=== PATIENT | female | born 1940 | race Caucasian/White ===

== ENCOUNTER 2018-04-24 00:10 | Inpatient (IN) | payer OTHER ==
[~2018-04-24] VITALS: Ht 157.5 cm; Wt 53.3 kg
[2018-04-24] MEDS ORDERED: ALBUTEROL/IPRATROPIUM 2.5MG/0.5MG, 3 ML NPPB ONE (00:30)
[2018-04-24] MEDS ORDERED: ACETAMINOPHEN 325 MG TABLET PO ONE (00:30)
[2018-04-24] MEDS ORDERED: SODIUM CHLORIDE 0.9% 1,000ML IVBOLUS ONE (00:30)
[2018-04-24] MEDS ORDERED: SODIUM CHLORIDE FLUSH 10ML SYR IVF ONE (00:30)
[2018-04-24] MEDS ORDERED: CIPR100T3 PO (00:44)
[2018-04-24] MEDS ORDERED: BUDE10.22 INH (00:44)
[2018-04-24] MEDS ORDERED: TIOT18CA INH (00:44)
[2018-04-24] MEDS ORDERED: LEVO25TA4 PO (00:44)
[2018-04-24] MEDS ORDERED: LORA-445 PO (00:44)
[2018-04-24 01:03] LABS: BASOPHILS # (AUTO) 0.02 x10^3/uL (0-0.1); BASOPHILS % (AUTO) 0 % (0-1); EOSINOPHILS # (AUTO) 0.01 x10^3/uL (0-0.4); EOSINOPHILS % (AUTO) 0 % (1-7); LYMPHOCYTES # (AUTO) 0.88 x10^3/uL (1-3.4); LYMPHOCYTES % (AUTO) 9 % (22-44); MD NO; MEAN CORPUSCULAR HGB CONC 33.9 g/dL (32.4-35.8); MEAN CORPUSCULAR VOLUME 97.2 fL (80-100); MONOCYTES # (AUTO) 0.85 x10^3/uL (0.2-0.8); MONOCYTES % (AUTO) 9 % (2-9); NEUTROPHILS # (AUTO) 7.81 x10^3/uL (1.8-6.8); NEUTROPHILS % (AUTO) 82 % (42-75); PLATELET COUNT 397 x10^3/uL (130-400); RED BLOOD COUNT 4.05 x10^6/uL (3.82-5.3); RED CELL DISTRIBUTION WIDTH 14.6 % (9.6-15.2)
[2018-04-24] MEDS ORDERED: ACETAMINOPHEN 325 MG TABLET ONE (01:03)
[2018-04-24 01:09] LABS: ALANINE AMINOTRANSFERASE 41 U/L (12-78); ALBUMIN 2.6 g/dL (3.4-5.0); ANION GAP 9 mmol/L (5-15); CALCIUM 7.7 mg/dL (8.5-10.1); CHLORIDE 103 mmol/L (98-107); CREATININE 0.54 mg/dL (0.55-1.02)
[2018-04-24 01:14] LABS: ALKALINE PHOSPHATASE 66 U/L (45-117); BILIRUBIN,TOTAL 0.4 mg/dL (0.2-1.0); TOTAL PROTEIN 6.6 g/dL (6.4-8.2); TROPONIN I < 0.015 ng/mL (0.000-0.045)
[2018-04-24] MEDS ORDERED: methylPREDNISolone SOD SUCC 125 MG/2 ML IVP ONE (01:30)
[2018-04-24] MEDS ORDERED: methylPREDNISolone SOD SUCC 125 MG/2 ML ONE (01:36)
[2018-04-24 01:40] LABS: CULTURE INDICATED? NO; MICROSCOPIC NOT IND
[2018-04-24 03:15] VITALS: BP 94/55
[2018-04-24] MEDS ORDERED: BISACODYL 10 MG SUPP PR PRN (05:00)
[2018-04-24] MEDS ORDERED: POLYETHYLENE GLYCOL 17 GM PACKET PO PRN (05:00)
[2018-04-24] MEDS ORDERED: ACETAMINOPHEN 325 MG TABLET PO PRN (05:00)
[2018-04-24] MEDS ORDERED: LABETALOL 5MG/ML, 20ML IVPush PRN (05:00)
[2018-04-24] MEDS ORDERED: hydrALAzine 20 MG/ML, 1ML IVPush PRN (05:00)
[2018-04-24] MEDS ORDERED: ONDANSETRON ODT 4 MG PO PRN (05:00)
[2018-04-24] MEDS ORDERED: ALBUTEROL SULFATE 2.5 MG/3 ML HHN SCH (05:00)
[2018-04-24] MEDS ORDERED: ONDANSETRON 2MG/ML, 2ML IVPush PRN (05:00)
[2018-04-24] MEDS ORDERED: PROMETHAZINE 25 MG/ML, 1ML IM PRN (05:00)
[2018-04-24] MEDS ORDERED: DOCUSATE 100 MG CAPSULE PO PRN (05:00)
[2018-04-24] MEDS: SODIUM CHLORIDE 0.9% 1,000 ML IV SCH ×2 (05:26→13:22)
[2018-04-24 05:41] LABS: FREE T4 (FREE THYROXINE) 1.09 ng/dL (0.76-1.46); THYROID STIMULATING HORMONE 3.55 mIU/L (0.358-3.740)
[2018-04-24 05:43] LABS: HEMOGLOBIN A1C 5.9 % (4.2-6.3)
[2018-04-24] MEDS: methylPREDNISolone SOD SUCC 125 MG/2 ML IVPush SCH ×3 (05:45→17:52)
[2018-04-24] MEDS: DOXYCYCLINE 100 MG in DEXTROSE 5% 250 ML IV SCH ×2 (05:45→17:52)
[2018-04-24] MEDS: LEVOTHYROXINE 25 MCG TABLET PO SCH (05:46)
[2018-04-24] MEDS: HEPARIN 5,000 UNITS/ML, 1ML SQ SCH ×3 (05:46→21:09)
[2018-04-24] MEDS ORDERED: IPRATROPIUM 0.5 MG/2.5 ML INHA NPPB SCH (07:00)
[2018-04-24] MEDS ORDERED: MAGNESIUM SULFATE PMX 2GM/50ML 50 ML IV ONE (07:00)
[2018-04-24 07:28] VITALS: BP 95/58
[2018-04-24] MEDS: ALBUTEROL/IPRATROPIUM 2.5MG/0.5MG, 3 ML NPPB SCH ×4 (07:50→19:51)
[2018-04-24] MEDS: MAGNESIUM CHLORIDE 64 MG TABLET.DR PO SCH ×2 (10:16→19:38)
[2018-04-24] MEDS: BUDESONIDE 0.5 MG/2 ML INHA HHN SCH ×2 (11:00→17:00)
[2018-04-24 13:25] VITALS: BP 125/70
[2018-04-24 18:25] VITALS: BP 173/81
[2018-04-24] MEDS ORDERED: LORazepam 1MG TABLET ONE (19:34)
[2018-04-24 19:48] VITALS: BP 165/73
[2018-04-24] MEDS ORDERED: LORazepam 1MG TABLET PO ONE (20:00)
[2018-04-25] MEDS: methylPREDNISolone SOD SUCC 125 MG/2 ML IVPush SCH ×4 (00:04→18:55)
[2018-04-25 02:21] VITALS: BP 151/77
[2018-04-25] MEDS: HEPARIN 5,000 UNITS/ML, 1ML SQ SCH ×3 (04:57→19:33)
[2018-04-25] MEDS: DOXYCYCLINE 100 MG in DEXTROSE 5% 250 ML IV SCH ×2 (06:00→18:55)
[2018-04-25] MEDS: LEVOTHYROXINE 25 MCG TABLET PO SCH (06:00)
[2018-04-25 07:01] VITALS: BP 137/69
[2018-04-25] MEDS: ALBUTEROL/IPRATROPIUM 2.5MG/0.5MG, 3 ML NPPB SCH ×4 (07:25→19:43)
[2018-04-25] MEDS: BUDESONIDE 0.5 MG/2 ML INHA HHN SCH ×2 (07:25→19:00)
[2018-04-25] MEDS ORDERED: BUDESONIDE 0.5 MG/2 ML INHA HHN SCH (07:30)
[2018-04-25] MEDS: MAGNESIUM CHLORIDE 64 MG TABLET.DR PO SCH ×2 (08:05→19:33)
[2018-04-25 08:27] LABS: MEAN CORPUSCULAR HEMOGLOBIN 31.9 pg (27.0-34.8); MEAN CORPUSCULAR HGB CONC 32.4 g/dL (32.4-35.8); MEAN CORPUSCULAR VOLUME 98.5 fL (80-100); MEAN PLATELET VOLUME 7.5 fL (7.4-10.4); PLATELET COUNT 411 x10^3/uL (130-400); RED BLOOD COUNT 3.88 x10^6/uL (3.82-5.3); RED CELL DISTRIBUTION WIDTH 14.7 % (9.6-15.2)
[2018-04-25 08:35] LABS: ALBUMIN 2.5 g/dL (3.4-5.0); ANION GAP 10 mmol/L (5-15); CALCIUM 8.2 mg/dL (8.5-10.1); CHLORIDE 107 mmol/L (98-107)
[2018-04-25 08:55] LABS: BASOPHILS # (AUTO) 0.02 x10^3/uL (0-0.1); BASOPHILS % (AUTO) 0 % (0-1); EOSINOPHILS % (AUTO) 0 % (1-7); LYMPHOCYTES # (AUTO) 1.02 x10^3/uL (1-3.4); LYMPHOCYTES % (AUTO) 5 % (22-44); MD SCAN; MONOCYTES % (AUTO) 3 % (2-9); NEUTROPHILS # (AUTO) 18.26 x10^3/uL (1.8-6.8); NEUTROPHILS % (AUTO) 92 % (42-75)
[2018-04-25 09:30] LABS: ALANINE AMINOTRANSFERASE 41 U/L (12-78); ALKALINE PHOSPHATASE 60 U/L (45-117); BILIRUBIN,TOTAL 0.1 mg/dL (0.2-1.0); HDL CHOLESTEROL (DIRECT) 55 mg/dL (40-60); TOTAL PROTEIN 6.5 g/dL (6.4-8.2)
[2018-04-25 11:13] LABS: CREATININE 0.73 mg/dL (0.55-1.02); TRIGLYCERIDES 67 mg/dL (50-200); VLDL CHOLESTEROL 13 mg/dL (0-25)
[2018-04-25 11:14] LABS: CHOL/HDL RATIO 2.8; CHOLESTEROL, TOTAL 153 mg/dL (140-239); HDL CHOL % 36 % (28-40); LDL CHOLESTEROL,CALCULATED 85 mg/dL (54-169); LDL/HDL RATIO 1.5 (0.5-3.0)
[2018-04-25 13:45] VITALS: BP 138/64
[2018-04-25 19:51] VITALS: BP 133/76
[2018-04-25] MEDS ORDERED: LORazepam 1MG TABLET PO ONE (21:00)
[2018-04-26] MEDS: methylPREDNISolone SOD SUCC 125 MG/2 ML IVPush SCH ×4 (01:25→16:02)
[2018-04-26 01:35] VITALS: BP 144/76
[2018-04-26] MEDS: HEPARIN 5,000 UNITS/ML, 1ML SQ SCH ×2 (05:00→12:05)
[2018-04-26] MEDS: DOXYCYCLINE 100 MG in DEXTROSE 5% 250 ML IV SCH ×2 (06:00→09:30)
[2018-04-26] MEDS: LEVOTHYROXINE 25 MCG TABLET PO SCH ×2 (06:00→09:33)
[2018-04-26] MEDS ORDERED: ALBUTEROL SULFATE 2.5 MG/3 ML NPPB PRN (06:30)
[2018-04-26 06:56] VITALS: BP 164/82
[2018-04-26] MEDS: BUDESONIDE 0.5 MG/2 ML INHA HHN SCH (07:00)
[2018-04-26] MEDS: ALBUTEROL/IPRATROPIUM 2.5MG/0.5MG, 3 ML NPPB SCH ×2 (09:00→14:58)
[2018-04-26] MEDS: MAGNESIUM CHLORIDE 64 MG TABLET.DR PO SCH (09:33)
[2018-04-26] MEDS ORDERED: TIOT18CA INH (12:43)
[2018-04-26] MEDS ORDERED: PRED5TAB PO (12:43)
[2018-04-26] MEDS ORDERED: CEFD300C37 PO (12:43)
[2018-04-26] MEDS ORDERED: DOXY100T10 PO (12:43)
[2018-04-26] MEDS ORDERED: BUDE10.22 INH (12:43)
[2018-04-26 14:09] VITALS: BP 148/72
== END 2018-04-26 16:56 | disposition home or self-care (01) | DRG 189 ==
LOC: ED 01:47 → EDIP 01:52 → ED 02:03 → 3NW 02:33
PROVIDERS: ADMIT Internal Medicine; ATTEND Internal Medicine
DX: J96.21 Acute and chronic respiratory failure with hypoxia (principal); J44.1 Chronic obstructive pulmonary disease with (acute) exacerbation; E44.0 Moderate protein-calorie malnutrition; N39.0 Urinary tract infection, site not specified; E86.0 Dehydration; E03.9 Hypothyroidism, unspecified; F03.90 Unspecified dementia, unspecified severity, without behavioral disturbance, psychotic disturbance, mood disturbance, and anxiety; I35.2 Nonrheumatic aortic (valve) stenosis with insufficiency; Z79.51 Long term (current) use of inhaled steroids; Z79.899 Other long term (current) drug therapy; Z68.21 Body mass index [BMI] 21.0-21.9, adult
CPT/HCPCS: 36415; 71045; 71046; 80053; 80061; 81003; 83036; 83605; 83735; 83880; 84145; 84439; 84443; 84484; 85025; 87040; 93005; 93308; 93321; 93325; 94640; 96374; G0378; J1644; J7060; J7620; J7626; J2930; J3475; J7030

== ENCOUNTER 2018-05-23 12:40 | Inpatient (IN) | payer OTHER ==
[~2018-05-23] VITALS: Ht 154.9 cm; Wt 52.8 kg
[~2018-05-23 12:40] MED LIST: BUDE10.22 INH; CEFD300C37 PO; CIPR100T3 PO; DOXY100T10 PO; LEVO25TA4 PO; LORA-445 PO; PRED5TAB PO; TIOT18CA INH
--- NOTE | 2018-05-23 12:52 | NUR ---
REJI OBANDO FROM HOME FOR C/O "FLU LIKE SYMPTOMS" X 2 DAYS. PT. UNABLE TO EXPRESS FURTHER WHAT EXACT SYMPTOMS SHE IS HAVING. DOES DENY ANY PAIN. HOME O2 1.5L 31/12. PER [facility] PT. WAS 89% ON HOME O2 BUT WHEN STANDING O2 SAT DROPPED TO 78%. PT. ON 4L O2 VIA NC TO MAINTAIN SAT ABOVE 90%. PT. PLACED ON CONTINUOUS PULSE OX AND B/P MONITORS. HX OF COPD, SCHITZOPHRENIA, AND DEMENTIA; PER EMS/FAMILY PT. BASELINE A&O X 2. PT. STATED YEAR 1989 BUT KNOWS THE PRESIDENT, KNOWS SHE IS AT [facility] FOR "THE FLU" AND KNOWS WHO SHE IS. PT. EDUCATED VENDING ATTENDANT LIGHT. DENIES NEEDS. AWAITING PROVIDER EVAL.
[2018-05-23] MEDS ORDERED: SODIUM CHLORIDE FLUSH 10ML SYR IVF ONE (13:00)
[2018-05-23] MEDS ORDERED: ALBUTEROL/IPRATROPIUM 2.5MG/0.5MG, 3 ML NPPB ONE (13:00)
--- NOTE | 2018-05-23 13:18 | NUR ---
PT. ASSISTED TO BS COMMODE. PT. HAD DIFFICULTY SITTING UP AND KEPT SHOUTING "OUCH". PT. CONTINUES TO DENY PAIN; WHEN RN ASKED WHY SHE IS SHOUTING OUCH PT. SAID, "I WAS JUST STRECHING". WHEN SITTING ON BS COMMODE SHE STATED SHOUTING "OUCH" AGAIN BUT CONTINUES TO DENY PAIN AND STATES "I JUST THOUGHT THAT I WAS FALLING". PT. ASSISTED BACK TO BED.
[2018-05-23] MEDS ORDERED: ALBUTEROL/IPRATROPIUM 2.5MG/0.5MG, 3 ML ONE (13:22)
--- NOTE | 2018-05-23 13:24 | NUR ---
RT AT BS FOR BREATING TX NOW.
[2018-05-23 14:05] LABS: RAPID INFLUENZA A Negative (Negative); RAPID INFLUENZA B Negative (Negative)
[2018-05-23 14:08] LABS: BASOPHILS # (AUTO) 0.02 x10^3/uL (0-0.1); BASOPHILS % (AUTO) 0 % (0-1); EOSINOPHILS # (AUTO) 0.04 x10^3/uL (0-0.4); EOSINOPHILS % (AUTO) 1 % (1-7); LYMPHOCYTES # (AUTO) 2.29 x10^3/uL (1-3.4); LYMPHOCYTES % (AUTO) 36 % (22-44); MD NO; MEAN CORPUSCULAR HEMOGLOBIN 31.7 pg (27.0-34.8); MEAN CORPUSCULAR HGB CONC 32.7 g/dL (32.4-35.8); MEAN PLATELET VOLUME 6.9 fL (7.4-10.4); MONOCYTES # (AUTO) 1.07 x10^3/uL (0.2-0.8); MONOCYTES % (AUTO) 17 % (2-9); NEUTROPHILS # (AUTO) 2.99 x10^3/uL (1.8-6.8); NEUTROPHILS % (AUTO) 47 % (42-75); PLATELET COUNT 337 x10^3/uL (130-400)
[2018-05-23 14:19] LABS: ALANINE AMINOTRANSFERASE 25 U/L (12-78); ALBUMIN 2.8 g/dL (3.4-5.0); ANION GAP 9 mmol/L (5-15); CALCIUM 8.5 mg/dL (8.5-10.1); CHLORIDE 100 mmol/L (98-107); CREATININE 0.57 mg/dL (0.55-1.02)
[2018-05-23 14:24] LABS: ALKALINE PHOSPHATASE 62 U/L (45-117); BILIRUBIN,TOTAL 0.2 mg/dL (0.2-1.0); TROPONIN I < 0.015 ng/mL (0.000-0.045)
--- NOTE | 2018-05-23 14:33 | NUR ---
PT. CHART UP FOR RECHECK AT THIS TIME.
--- NOTE | 2018-05-23 14:36 | NUR ---
PT. RESTING ON GURNEY WITH EYES CLOSED RIGHT SIDE LYING. NADN. RESP RAPID BUT UNLABORED. O2 SAT WAS 96% ON 4 L. O2 DECREASED TO 2.5 L AND O2 HAS REMAINED AT 94-95%. DAUGHTER AT BS FOR SUPPORT. CALL LIGHT REMAINS IN REACH. ALL SAFETY MEASUERS OBSERVED. CHART IS UP FOR RECHECK AT THIS TIME.
[2018-05-23] MEDS ORDERED: DIVA250T14 PO (14:44)
[2018-05-23] MEDS ORDERED: IPRA0.2S35 INH (14:44)
[2018-05-23] MEDS ORDERED: LEVO50TA5 PO (14:44)
[2018-05-23] MEDS ORDERED: ALBU5SOL6 INH (14:44)
[2018-05-23] MEDS ORDERED: RISP0.253 PO (14:44)
--- NOTE | 2018-05-23 15:00 | NUR ---
REPORT TO MARIELENA MEYER.
--- NOTE | 2018-05-23 15:00 | NUR ---
REPORT FROM MARIELENA REYNOLDS. CARE ASSUMED. DAUGHTER AT BEDSIDE.
[2018-05-23] MEDS ORDERED: methylPREDNISolone SOD SUCC 125 MG/2 ML ONE (15:21)
[2018-05-23] MEDS ORDERED: CEFTRIAXONE PMX 1GM/50ML 50 ML ONE (15:21)
[2018-05-23] MEDS ORDERED: CEFTRIAXONE PMX 1GM/50ML 50 ML IV ONE (15:30)
[2018-05-23] MEDS ORDERED: AZITHROMYCIN 500 MG in SODIUM CHLORIDE 0.9% 250 ML IV ONE (15:30)
[2018-05-23] MEDS ORDERED: SODIUM CHLORIDE 0.9% 1,000 ML IV ONE (15:30)
[2018-05-23] MEDS ORDERED: methylPREDNISolone SOD SUCC 125 MG/2 ML IVPush SCH (15:30)
[2018-05-23] MEDS ORDERED: IPRATROPIUM BROMIDE INH PRN (16:00)
[2018-05-23] MEDS ORDERED: BISACODYL 10 MG SUPP PR PRN (16:00)
[2018-05-23] MEDS ORDERED: ACETAMINOPHEN 325 MG TABLET PO PRN (16:00)
[2018-05-23] MEDS ORDERED: POLYETHYLENE GLYCOL 17 GM PACKET PO PRN (16:00)
[2018-05-23] MEDS ORDERED: DOCUSATE 100 MG CAPSULE PO PRN (16:00)
[2018-05-23] MEDS ORDERED: ENALAPRILAT 1.25 MG/ML, 2ML IVPush PRN (16:00)
[2018-05-23] MEDS ORDERED: ONDANSETRON 2MG/ML, 2ML IVPush PRN (16:00)
[2018-05-23] MEDS ORDERED: CEFTRIAXONE PMX 1GM/50ML 50 ML IV SCH (16:00)
[2018-05-23 17:27] VITALS: BP 125/71
[2018-05-23] MEDS ORDERED: DIVALPROEX ER MC SCH (18:00)
[2018-05-23 18:21] VITALS: BP 125/71
[2018-05-23] MEDS: DIVALPROEX 125 MG TABLET.DR PO SCH ×2 (18:27→20:30)
[2018-05-23] MEDS: ENOXAPARIN 40 MG/0.4 ML SQ SCH (18:28)
[2018-05-23] MEDS: DOXYCYCLINE 100 MG in DEXTROSE 5% 250 ML IV SCH (18:42)
[2018-05-23 19:01] VITALS: BP 105/64
[2018-05-23] MEDS: BUDESONIDE 0.5 MG/2 ML INHA HHN SCH (20:20)
[2018-05-23] MEDS: GUAIFENESIN ER 600 MG TABLET PO SCH (20:30)
[2018-05-23] MEDS: RISPERIDONE 0.5 MG TABLET PO SCH (20:31)
[2018-05-23] MEDS: SODIUM CHLORIDE FLUSH 10ML SYR IVF SCH (20:32)
[2018-05-23] MEDS ORDERED: TEMPLATE NON-FORMULARY MED. (Budesonide/Formoterol Fumarate (Symbicort 80-4.5 Mcg Inhaler) INH SCH (21:00)
[2018-05-23] MEDS ORDERED: ALBUTEROL SULFATE 2.5 MG/3 ML HHN SCH (21:00)
[2018-05-23] MEDS: methylPREDNISolone SOD SUCC 125 MG/2 ML IVPush SCH (23:22)
[2018-05-24] MEDS: ALBUTEROL/IPRATROPIUM 2.5MG/0.5MG, 3 ML NPPB SCH ×4 (02:27→19:51)
[2018-05-24 02:29] VITALS: BP 165/69
[2018-05-24 04:55] LABS: CLOSTRIDIUM DIFFICILE ANTIGEN NEGATIVE; CLOSTRIDIUM DIFFICILE TOXIN NEGATIVE (Negative)
[2018-05-24 05:15] LABS: ANION GAP 10 mmol/L (5-15); CALCIUM 8.5 mg/dL (8.5-10.1); CHLORIDE 101 mmol/L (98-107)
[2018-05-24 05:16] LABS: CREATININE 0.85 mg/dL (0.55-1.02)
[2018-05-24] MEDS: LEVOTHYROXINE 50 MCG TABLET PO SCH (05:23)
[2018-05-24] MEDS: DOXYCYCLINE 100 MG in DEXTROSE 5% 250 ML IV SCH ×2 (05:24→18:18)
[2018-05-24 05:52] LABS: MEAN CORPUSCULAR HEMOGLOBIN 31.8 pg (27.0-34.8); MEAN CORPUSCULAR VOLUME 96.5 fL (80-100); RED BLOOD COUNT 4.46 x10^6/uL (3.82-5.3); RED CELL DISTRIBUTION WIDTH 15.2 % (9.6-15.2)
[2018-05-24 05:54] LABS: MD YES
[2018-05-24 06:38] LABS: MEAN PLATELET VOLUME 7.7 fL (7.4-10.4); PLATELET COUNT 273 x10^3/uL (130-400)
[2018-05-24 06:46] LABS: <PLATELET ESTIMATE> ADEQUATE; <PLT MORPHOLOGY> NORMAL PLT MORPH; <RBC MORPHOLOGY> NORMAL; LYMPH#(MANUAL) 0.65 x10^3/uL (1-3.4); LYMPHS% (MANUAL) 26 % (22-44); SEG#(MANUAL) 1.85 x10^3/uL (1.8-6.8); SEGS% (MANUAL) 74 % (42-75)
[2018-05-24 06:54] VITALS: BP 139/73
[2018-05-24] MEDS ORDERED: IPRATROPIUM 0.5 MG/2.5 ML INHA HHN SCH (09:00)
[2018-05-24] MEDS: BUDESONIDE 0.5 MG/2 ML INHA HHN SCH ×2 (09:24→19:51)
[2018-05-24] MEDS: GUAIFENESIN ER 600 MG TABLET PO SCH ×2 (09:50→20:36)
[2018-05-24] MEDS: DIVALPROEX 125 MG TABLET.DR PO SCH ×3 (09:50→20:36)
[2018-05-24] MEDS: SODIUM CHLORIDE FLUSH 10ML SYR IVF SCH ×2 (09:51→20:37)
[2018-05-24] MEDS: methylPREDNISolone SOD SUCC 125 MG/2 ML IVPush SCH ×3 (09:51→23:48)
[2018-05-24 12:29] VITALS: BP 160/79
[2018-05-24] MEDS: CEFTRIAXONE PMX 1GM/50ML 50 ML IV SCH (15:33)
[2018-05-24 19:00] VITALS: BP 127/64
[2018-05-24] MEDS: RISPERIDONE 0.5 MG TABLET PO SCH (20:36)
[2018-05-24] MEDS: ENOXAPARIN 40 MG/0.4 ML SQ SCH (20:37)
[2018-05-25 01:20] VITALS: BP 143/64
[2018-05-25] MEDS: ALBUTEROL/IPRATROPIUM 2.5MG/0.5MG, 3 ML NPPB SCH ×4 (02:03→20:45)
[2018-05-25 05:22] LABS: MEAN CORPUSCULAR HEMOGLOBIN 32.2 pg (27.0-34.8); MEAN CORPUSCULAR VOLUME 97.6 fL (80-100); MEAN PLATELET VOLUME 7.3 fL (7.4-10.4); PLATELET COUNT 379 x10^3/uL (130-400); RED BLOOD COUNT 4.07 x10^6/uL (3.82-5.3); RED CELL DISTRIBUTION WIDTH 15.6 % (9.6-15.2)
[2018-05-25 05:27] LABS: ANION GAP 12 mmol/L (5-15); CALCIUM 8.5 mg/dL (8.5-10.1); CHLORIDE 103 mmol/L (98-107)
[2018-05-25 05:28] LABS: CREATININE 0.83 mg/dL (0.55-1.02)
[2018-05-25 06:09] LABS: BASOPHILS % (AUTO) 0 % (0-1); EOSINOPHILS % (AUTO) 0 % (1-7); LYMPHOCYTES # (AUTO) 0.68 x10^3/uL (1-3.4); LYMPHOCYTES % (AUTO) 5 % (22-44); MD NO; MONOCYTES # (AUTO) 0.79 x10^3/uL (0.2-0.8); MONOCYTES % (AUTO) 6 % (2-9); NEUTROPHILS # (AUTO) 12.67 x10^3/uL (1.8-6.8); NEUTROPHILS % (AUTO) 90 % (42-75)
[2018-05-25] MEDS: DOXYCYCLINE 100 MG in DEXTROSE 5% 250 ML IV SCH ×2 (06:17→18:10)
[2018-05-25] MEDS: LEVOTHYROXINE 50 MCG TABLET PO SCH (06:17)
[2018-05-25 06:54] VITALS: BP 113/63
[2018-05-25] MEDS: SODIUM CHLORIDE FLUSH 10ML SYR IVF SCH ×2 (08:47→20:01)
[2018-05-25] MEDS: methylPREDNISolone SOD SUCC 125 MG/2 ML IVPush SCH (08:47)
[2018-05-25] MEDS: DIVALPROEX 125 MG TABLET.DR PO SCH ×3 (08:47→20:01)
[2018-05-25] MEDS: GUAIFENESIN ER 600 MG TABLET PO SCH ×2 (08:47→20:01)
[2018-05-25] MEDS: BUDESONIDE 0.5 MG/2 ML INHA HHN SCH ×2 (09:00→20:45)
[2018-05-25 13:30] VITALS: BP 116/63
[2018-05-25] MEDS ORDERED: PRED20TA PO (13:31)
[2018-05-25] MEDS ORDERED: CEFD300C37 PO (13:31)
[2018-05-25] MEDS ORDERED: DOXY100T PO (13:31)
[2018-05-25] MEDS: CEFTRIAXONE PMX 1GM/50ML 50 ML IV SCH (15:32)
[2018-05-25 18:53] VITALS: BP 153/61
[2018-05-25] MEDS: RISPERIDONE 0.5 MG TABLET PO SCH (20:01)
[2018-05-25] MEDS: ENOXAPARIN 40 MG/0.4 ML SQ SCH (20:01)
[2018-05-26 02:00] VITALS: BP 129/69
[2018-05-26] MEDS: ALBUTEROL/IPRATROPIUM 2.5MG/0.5MG, 3 ML NPPB SCH ×2 (02:17→11:00)
[2018-05-26] MEDS: LEVOTHYROXINE 50 MCG TABLET PO SCH (05:27)
[2018-05-26] MEDS: DOXYCYCLINE 100 MG in DEXTROSE 5% 250 ML IV SCH ×2 (05:27→17:43)
[2018-05-26 08:01] VITALS: BP 156/77
[2018-05-26] MEDS: DIVALPROEX 125 MG TABLET.DR PO SCH ×3 (08:14→21:36)
[2018-05-26] MEDS: GUAIFENESIN ER 600 MG TABLET PO SCH ×2 (08:14→21:36)
[2018-05-26] MEDS: SODIUM CHLORIDE FLUSH 10ML SYR IVF SCH ×2 (08:15→21:36)
[2018-05-26] MEDS: BUDESONIDE 0.5 MG/2 ML INHA HHN SCH ×2 (11:00→18:32)
[2018-05-26 13:01] VITALS: BP 170/77
[2018-05-26] MEDS ORDERED: IPRATROPIUM 0.5 MG/2.5 ML INHA ONE (14:14)
[2018-05-26] MEDS: IPRATROPIUM 0.5 MG/2.5 ML INHA NPPB SCH ×2 (15:22→18:32)
[2018-05-26] MEDS: CEFTRIAXONE PMX 1GM/50ML 50 ML IV SCH (15:28)
[2018-05-26] MEDS ORDERED: SODIUM BICARBONATE 4.0%, 5ML NPPB ONE (16:30)
[2018-05-26 18:26] VITALS: BP 154/89
[2018-05-26] MEDS: ENOXAPARIN 40 MG/0.4 ML SQ SCH (21:35)
[2018-05-26] MEDS: RISPERIDONE 0.5 MG TABLET PO SCH (21:36)
[2018-05-27 01:47] VITALS: BP 145/67
[2018-05-27] MEDS: IPRATROPIUM 0.5 MG/2.5 ML INHA NPPB SCH ×4 (03:00→20:45)
[2018-05-27] MEDS: LEVOTHYROXINE 50 MCG TABLET PO SCH (05:47)
[2018-05-27] MEDS: DOXYCYCLINE 100 MG in DEXTROSE 5% 250 ML IV SCH (05:47)
[2018-05-27] MEDS: BUDESONIDE 0.5 MG/2 ML INHA HHN SCH ×2 (06:41→20:45)
[2018-05-27 07:00] VITALS: BP 178/97
[2018-05-27] MEDS: SODIUM CHLORIDE FLUSH 10ML SYR IVF SCH ×2 (07:37→20:25)
[2018-05-27] MEDS: GUAIFENESIN ER 600 MG TABLET PO SCH ×2 (07:37→20:24)
[2018-05-27] MEDS: DIVALPROEX 125 MG TABLET.DR PO SCH ×3 (07:37→20:24)
[2018-05-27 08:43] LABS: MEAN CORPUSCULAR HEMOGLOBIN 31.8 pg (27.0-34.8); MEAN CORPUSCULAR HGB CONC 33.4 g/dL (32.4-35.8); MEAN CORPUSCULAR VOLUME 95.2 fL (80-100); MEAN PLATELET VOLUME 7.5 fL (7.4-10.4); PLATELET COUNT 360 x10^3/uL (130-400); RED BLOOD COUNT 4.68 x10^6/uL (3.82-5.3); RED CELL DISTRIBUTION WIDTH 15.6 % (9.6-15.2)
[2018-05-27 08:48] LABS: ANION GAP 7 mmol/L (5-15); CALCIUM 8.2 mg/dL (8.5-10.1); CHLORIDE 98 mmol/L (98-107); CREATININE 0.45 mg/dL (0.55-1.02)
[2018-05-27] MEDS: CEFDINIR 300 MG CAPSULE PO SCH ×2 (09:08→20:23)
[2018-05-27] MEDS: DOXYCYCLINE 100MG TABLET PO SCH ×2 (09:09→20:24)
[2018-05-27] MEDS ORDERED: POTASSIUM CHLORIDE 20 MEQ TAB.ER.PRT PO ONE (09:30)
[2018-05-27 11:06] LABS: BASOPHILS # (AUTO) 0.09 x10^3/uL (0-0.1); BASOPHILS % (AUTO) 1 % (0-1); EOSINOPHILS # (AUTO) 0.03 x10^3/uL (0-0.4); EOSINOPHILS % (AUTO) 0 % (1-7); LYMPHOCYTES # (AUTO) 2.16 x10^3/uL (1-3.4); LYMPHOCYTES % (AUTO) 18 % (22-44); MD SCAN; MONOCYTES # (AUTO) 1.18 x10^3/uL (0.2-0.8); MONOCYTES % (AUTO) 10 % (2-9); NEUTROPHILS # (AUTO) 8.66 x10^3/uL (1.8-6.8); NEUTROPHILS % (AUTO) 72 % (42-75)
[2018-05-27 12:12] VITALS: BP 124/77
[2018-05-27 12:51] VITALS: BP 125/74
[2018-05-27] MEDS: ENOXAPARIN 40 MG/0.4 ML SQ SCH (20:23)
[2018-05-27] MEDS: RISPERIDONE 0.5 MG TABLET PO SCH (20:24)
[2018-05-27 20:56] VITALS: BP 137/73
[2018-05-28 01:49] VITALS: BP 133/73
[2018-05-28] MEDS: IPRATROPIUM 0.5 MG/2.5 ML INHA NPPB SCH ×4 (03:00→19:28)
[2018-05-28] MEDS: LEVOTHYROXINE 50 MCG TABLET PO SCH (06:05)
[2018-05-28] MEDS: BUDESONIDE 0.5 MG/2 ML INHA HHN SCH ×2 (06:36→19:28)
[2018-05-28 07:05] VITALS: BP 119/73
[2018-05-28] MEDS: DIVALPROEX 125 MG TABLET.DR PO SCH ×3 (08:42→20:17)
[2018-05-28] MEDS: CEFDINIR 300 MG CAPSULE PO SCH ×2 (08:42→20:17)
[2018-05-28] MEDS: SODIUM CHLORIDE FLUSH 10ML SYR IVF SCH ×2 (08:42→20:17)
[2018-05-28] MEDS: DOXYCYCLINE 100MG TABLET PO SCH ×2 (08:42→20:16)
[2018-05-28] MEDS: GUAIFENESIN ER 600 MG TABLET PO SCH ×2 (08:42→20:16)
[2018-05-28 13:08] VITALS: BP 104/61
[2018-05-28 19:13] VITALS: BP 130/80
[2018-05-28] MEDS: ENOXAPARIN 40 MG/0.4 ML SQ SCH (20:16)
[2018-05-28] MEDS: RISPERIDONE 0.5 MG TABLET PO SCH (20:17)
[2018-05-29] MEDS: IPRATROPIUM 0.5 MG/2.5 ML INHA NPPB SCH ×4 (02:13→19:48)
[2018-05-29 02:24] VITALS: BP 129/80
[2018-05-29] MEDS: LEVOTHYROXINE 50 MCG TABLET PO SCH (06:04)
[2018-05-29] MEDS: BUDESONIDE 0.5 MG/2 ML INHA HHN SCH ×2 (06:41→19:48)
[2018-05-29 07:17] VITALS: BP 117/69
[2018-05-29] MEDS: GUAIFENESIN ER 600 MG TABLET PO SCH ×2 (09:21→21:32)
[2018-05-29] MEDS: CEFDINIR 300 MG CAPSULE PO SCH ×2 (09:21→21:32)
[2018-05-29] MEDS: DIVALPROEX 125 MG TABLET.DR PO SCH ×3 (09:23→20:00)
[2018-05-29] MEDS: DOXYCYCLINE 100MG TABLET PO SCH ×2 (09:24→21:32)
[2018-05-29] MEDS: SODIUM CHLORIDE FLUSH 10ML SYR IVF SCH ×2 (09:24→21:33)
[2018-05-29 12:34] VITALS: BP 122/67
[2018-05-29 21:02] VITALS: BP 112/64
[2018-05-29] MEDS: RISPERIDONE 0.5 MG TABLET PO SCH (21:32)
[2018-05-29] MEDS: ENOXAPARIN 40 MG/0.4 ML SQ SCH (21:33)
[2018-05-30] MEDS: IPRATROPIUM 0.5 MG/2.5 ML INHA NPPB SCH ×4 (03:00→20:30)
[2018-05-30 03:18] VITALS: BP 133/73
[2018-05-30] MEDS: LEVOTHYROXINE 50 MCG TABLET PO SCH (05:18)
[2018-05-30 06:58] VITALS: BP 107/57
[2018-05-30] MEDS: BUDESONIDE 0.5 MG/2 ML INHA HHN SCH ×2 (07:18→20:30)
[2018-05-30] MEDS: DIVALPROEX 125 MG TABLET.DR PO SCH ×3 (08:00→20:09)
[2018-05-30] MEDS: SODIUM CHLORIDE FLUSH 10ML SYR IVF SCH ×2 (08:08→20:11)
[2018-05-30] MEDS: CEFDINIR 300 MG CAPSULE PO SCH ×2 (08:10→20:10)
[2018-05-30] MEDS: GUAIFENESIN ER 600 MG TABLET PO SCH ×2 (08:10→20:09)
[2018-05-30] MEDS: DOXYCYCLINE 100MG TABLET PO SCH ×2 (08:11→20:09)
[2018-05-30 13:08] VITALS: BP 109/62
[2018-05-30 18:55] VITALS: BP 122/64
[2018-05-30] MEDS: ENOXAPARIN 40 MG/0.4 ML SQ SCH (20:10)
[2018-05-30] MEDS: RISPERIDONE 0.5 MG TABLET PO SCH (20:10)
[2018-05-31 00:03] VITALS: BP 125/67
[2018-05-31] MEDS: IPRATROPIUM 0.5 MG/2.5 ML INHA NPPB SCH ×4 (03:00→22:00)
[2018-05-31] MEDS: LEVOTHYROXINE 50 MCG TABLET PO SCH (05:09)
[2018-05-31 06:41] VITALS: BP 113/61
[2018-05-31] MEDS: BUDESONIDE 0.5 MG/2 ML INHA HHN SCH ×2 (07:21→22:00)
[2018-05-31] MEDS: DIVALPROEX 125 MG TABLET.DR PO SCH ×3 (08:27→20:23)
[2018-05-31] MEDS: GUAIFENESIN ER 600 MG TABLET PO SCH ×2 (08:27→20:23)
[2018-05-31] MEDS: CEFDINIR 300 MG CAPSULE PO SCH (08:27)
[2018-05-31] MEDS: DOXYCYCLINE 100MG TABLET PO SCH (08:28)
[2018-05-31] MEDS: SODIUM CHLORIDE FLUSH 10ML SYR IVF SCH ×2 (08:28→21:00)
[2018-05-31 13:07] VITALS: BP 108/64
[2018-05-31 19:01] VITALS: BP 103/62
[2018-05-31] MEDS: RISPERIDONE 0.5 MG TABLET PO SCH (20:23)
[2018-05-31] MEDS: ENOXAPARIN 40 MG/0.4 ML SQ SCH (20:24)
[2018-06-01 02:00] VITALS: BP 123/68
[2018-06-01] MEDS: IPRATROPIUM 0.5 MG/2.5 ML INHA NPPB SCH ×4 (04:00→19:44)
[2018-06-01 04:09] VITALS: BP 138/69
[2018-06-01 04:53] LABS: CREATININE 0.78 mg/dL (0.55-1.02)
[2018-06-01] MEDS: LEVOTHYROXINE 50 MCG TABLET PO SCH (05:37)
[2018-06-01 07:05] LABS: ANION GAP 8 mmol/L (5-15); CALCIUM 9.8 mg/dL (8.5-10.1); CHLORIDE 103 mmol/L (98-107)
[2018-06-01 07:44] VITALS: BP 111/66
[2018-06-01] MEDS: SODIUM CHLORIDE FLUSH 10ML SYR IVF SCH ×2 (09:00→19:58)
[2018-06-01] MEDS: DIVALPROEX 125 MG TABLET.DR PO SCH ×3 (09:37→19:58)
[2018-06-01] MEDS: GUAIFENESIN ER 600 MG TABLET PO SCH ×2 (09:38→19:57)
[2018-06-01] MEDS: BUDESONIDE 0.5 MG/2 ML INHA HHN SCH ×2 (09:55→19:44)
[2018-06-01 14:47] VITALS: BP 103/60
[2018-06-01 18:43] VITALS: BP 103/60
[2018-06-01] MEDS: ENOXAPARIN 40 MG/0.4 ML SQ SCH (19:57)
[2018-06-01] MEDS: RISPERIDONE 0.5 MG TABLET PO SCH (19:58)
[2018-06-02 00:47] VITALS: BP 114/64
[2018-06-02] MEDS: IPRATROPIUM 0.5 MG/2.5 ML INHA NPPB SCH ×4 (02:05→20:02)
[2018-06-02] MEDS: LEVOTHYROXINE 50 MCG TABLET PO SCH (05:45)
[2018-06-02 07:24] VITALS: BP 95/59
[2018-06-02] MEDS: DIVALPROEX 125 MG TABLET.DR PO SCH ×3 (08:00→20:29)
[2018-06-02] MEDS: SODIUM CHLORIDE FLUSH 10ML SYR IVF SCH ×2 (09:00→20:30)
[2018-06-02] MEDS: GUAIFENESIN ER 600 MG TABLET PO SCH ×2 (09:15→20:28)
[2018-06-02] MEDS: BUDESONIDE 0.5 MG/2 ML INHA HHN SCH ×2 (09:55→20:02)
[2018-06-02 12:43] VITALS: BP 108/61
[2018-06-02 19:15] VITALS: BP 143/71
[2018-06-02 19:26] VITALS: BP 100/55
[2018-06-02] MEDS: ENOXAPARIN 40 MG/0.4 ML SQ SCH (20:28)
[2018-06-02] MEDS: RISPERIDONE 0.5 MG TABLET PO SCH (20:28)
[2018-06-03 01:52] VITALS: BP 103/64
[2018-06-03] MEDS: IPRATROPIUM 0.5 MG/2.5 ML INHA NPPB SCH ×4 (01:55→19:34)
[2018-06-03] MEDS: LEVOTHYROXINE 50 MCG TABLET PO SCH (05:44)
[2018-06-03 06:57] VITALS: BP 125/74
[2018-06-03] MEDS: DIVALPROEX 125 MG TABLET.DR PO SCH ×3 (08:00→20:10)
[2018-06-03] MEDS: GUAIFENESIN ER 600 MG TABLET PO SCH ×2 (08:16→20:10)
[2018-06-03] MEDS: SODIUM CHLORIDE FLUSH 10ML SYR IVF SCH ×2 (08:18→20:11)
[2018-06-03] MEDS: BUDESONIDE 0.5 MG/2 ML INHA HHN SCH ×2 (10:22→19:34)
[2018-06-03 12:39] VITALS: BP 122/72
[2018-06-03 19:06] VITALS: BP 120/63
[2018-06-03] MEDS: ENOXAPARIN 40 MG/0.4 ML SQ SCH (20:09)
[2018-06-03] MEDS: RISPERIDONE 0.5 MG TABLET PO SCH (20:10)
[2018-06-04 01:45] VITALS: BP 125/72
[2018-06-04] MEDS: IPRATROPIUM 0.5 MG/2.5 ML INHA NPPB SCH ×4 (02:15→21:23)
[2018-06-04 05:25] LABS: CREATININE 0.45 mg/dL (0.55-1.02)
[2018-06-04] MEDS: LEVOTHYROXINE 50 MCG TABLET PO SCH (05:26)
[2018-06-04] MEDS: BUDESONIDE 0.5 MG/2 ML INHA HHN SCH (07:20)
[2018-06-04] MEDS: GUAIFENESIN ER 600 MG TABLET PO SCH ×2 (07:46→21:41)
[2018-06-04] MEDS: SODIUM CHLORIDE FLUSH 10ML SYR IVF SCH ×2 (07:48→21:41)
[2018-06-04 07:50] VITALS: BP 126/51
[2018-06-04] MEDS: DIVALPROEX 125 MG TABLET.DR PO SCH ×3 (08:00→20:00)
[2018-06-04 12:13] VITALS: BP 118/64
[2018-06-04] MEDS ORDERED: BUDESONIDE 0.5 MG/2 ML INHA HHN PRN (17:30)
[2018-06-04 18:28] VITALS: BP 146/61
[2018-06-04] MEDS: ENOXAPARIN 40 MG/0.4 ML SQ SCH (21:40)
[2018-06-04] MEDS: RISPERIDONE 0.5 MG TABLET PO SCH (21:41)
[2018-06-05] MEDS: IPRATROPIUM 0.5 MG/2.5 ML INHA NPPB SCH ×4 (03:00→21:02)
[2018-06-05 04:00] VITALS: BP 108/98
[2018-06-05 04:20] VITALS: BP 108/98
[2018-06-05] MEDS: LEVOTHYROXINE 50 MCG TABLET PO SCH (04:51)
[2018-06-05 06:20] VITALS: BP 110/60
[2018-06-05] MEDS: BUDESONIDE 0.5 MG/2 ML INHA HHN SCH ×2 (07:01→21:02)
[2018-06-05] MEDS: DIVALPROEX 125 MG TABLET.DR PO SCH (08:00)
[2018-06-05] MEDS: SODIUM CHLORIDE FLUSH 10ML SYR IVF SCH ×2 (09:00→20:21)
[2018-06-05] MEDS: GUAIFENESIN ER 600 MG TABLET PO SCH ×2 (10:04→20:21)
[2018-06-05 11:26] LABS: FOLATE LEVEL 18.2 ng/mL (3.1-17.5)
[2018-06-05 11:40] LABS: FREE T4 (FREE THYROXINE) 1.03 ng/dL (0.76-1.46)
[2018-06-05 13:34] VITALS: BP 124/63
[2018-06-05 19:11] VITALS: BP 144/68
[2018-06-05] MEDS: OLANZAPINE 2.5 MG TABLET PO SCH (20:22)
[2018-06-05] MEDS: ENOXAPARIN 40 MG/0.4 ML SQ SCH (21:00)
[2018-06-06 02:25] VITALS: BP 104/58
[2018-06-06] MEDS: IPRATROPIUM 0.5 MG/2.5 ML INHA NPPB SCH ×4 (03:00→21:48)
[2018-06-06] MEDS: LEVOTHYROXINE 75 MCG TABLET PO SCH (06:23)
[2018-06-06 07:15] VITALS: BP 102/59
[2018-06-06] MEDS: BUDESONIDE 0.5 MG/2 ML INHA HHN SCH ×2 (08:37→21:48)
[2018-06-06] MEDS: SODIUM CHLORIDE FLUSH 10ML SYR IVF SCH ×2 (09:00→21:00)
[2018-06-06] MEDS: GUAIFENESIN ER 600 MG TABLET PO SCH ×2 (10:59→20:36)
[2018-06-06] MEDS: OLANZAPINE 2.5 MG TABLET PO SCH ×2 (11:00→20:36)
[2018-06-06 14:00] VITALS: BP 98/61
[2018-06-06 19:35] VITALS: BP 126/71
[2018-06-06] MEDS: ENOXAPARIN 40 MG/0.4 ML SQ SCH (20:36)
[2018-06-07 01:00] VITALS: BP 127/64
[2018-06-07] MEDS: IPRATROPIUM 0.5 MG/2.5 ML INHA NPPB SCH ×4 (03:00→21:53)
[2018-06-07] MEDS: LEVOTHYROXINE 75 MCG TABLET PO SCH (05:45)
[2018-06-07 06:12] LABS: CREATININE 0.37 mg/dL (0.55-1.02)
[2018-06-07 07:20] VITALS: BP 136/64
[2018-06-07] MEDS: GUAIFENESIN ER 600 MG TABLET PO SCH ×2 (10:21→20:40)
[2018-06-07] MEDS: OLANZAPINE 2.5 MG TABLET PO SCH ×2 (10:23→20:40)
[2018-06-07] MEDS: SODIUM CHLORIDE FLUSH 10ML SYR IVF SCH ×2 (10:23→20:39)
[2018-06-07] MEDS: BUDESONIDE 0.5 MG/2 ML INHA HHN SCH ×2 (11:00→21:53)
[2018-06-07 14:00] VITALS: BP 96/71
[2018-06-07 18:47] VITALS: BP 113/62
[2018-06-07] MEDS: ENOXAPARIN 40 MG/0.4 ML SQ SCH (21:00)
[2018-06-08 02:16] VITALS: BP 123/72
[2018-06-08] MEDS: IPRATROPIUM 0.5 MG/2.5 ML INHA NPPB SCH ×4 (03:00→21:20)
[2018-06-08] MEDS: LEVOTHYROXINE 75 MCG TABLET PO SCH (05:35)
[2018-06-08 07:20] VITALS: BP 138/62
[2018-06-08] MEDS: SODIUM CHLORIDE FLUSH 10ML SYR IVF SCH ×2 (09:00→20:07)
[2018-06-08] MEDS: OLANZAPINE 2.5 MG TABLET PO SCH ×2 (09:01→20:06)
[2018-06-08] MEDS: GUAIFENESIN ER 600 MG TABLET PO SCH ×2 (09:01→20:06)
[2018-06-08] MEDS: BUDESONIDE 0.5 MG/2 ML INHA HHN SCH ×2 (09:45→21:30)
[2018-06-08 13:44] VITALS: BP 129/68
[2018-06-08 19:23] VITALS: BP 107/63
[2018-06-08] MEDS: ENOXAPARIN 40 MG/0.4 ML SQ SCH (20:06)
[2018-06-09 02:56] VITALS: BP 107/66
[2018-06-09] MEDS: IPRATROPIUM 0.5 MG/2.5 ML INHA NPPB SCH ×4 (04:11→21:00)
[2018-06-09] MEDS: LEVOTHYROXINE 75 MCG TABLET PO SCH (05:38)
[2018-06-09 06:55] VITALS: BP 117/59
[2018-06-09] MEDS: BUDESONIDE 0.5 MG/2 ML INHA HHN SCH ×2 (08:00→21:00)
[2018-06-09] MEDS: SODIUM CHLORIDE FLUSH 10ML SYR IVF SCH ×2 (09:00→19:39)
[2018-06-09] MEDS: OLANZAPINE 2.5 MG TABLET PO SCH ×2 (09:12→19:38)
[2018-06-09] MEDS: GUAIFENESIN ER 600 MG TABLET PO SCH ×2 (09:12→19:38)
[2018-06-09 17:30] VITALS: BP 116/63
[2018-06-09 19:19] VITALS: BP 112/61
[2018-06-09] MEDS: ENOXAPARIN 40 MG/0.4 ML SQ SCH (19:39)
[2018-06-10 01:04] VITALS: BP 109/62
[2018-06-10] MEDS: IPRATROPIUM 0.5 MG/2.5 ML INHA NPPB SCH ×4 (03:30→20:02)
[2018-06-10 05:11] LABS: CREATININE 0.57 mg/dL (0.55-1.02)
[2018-06-10] MEDS: LEVOTHYROXINE 75 MCG TABLET PO SCH (05:20)
[2018-06-10] MEDS: SODIUM CHLORIDE FLUSH 10ML SYR IVF SCH ×2 (09:00→21:00)
[2018-06-10] MEDS: BUDESONIDE 0.5 MG/2 ML INHA HHN SCH ×2 (09:20→20:02)
[2018-06-10 10:30] VITALS: BP 116/63
[2018-06-10] MEDS: GUAIFENESIN ER 600 MG TABLET PO SCH ×2 (10:54→21:00)
[2018-06-10] MEDS: OLANZAPINE 2.5 MG TABLET PO SCH ×2 (10:55→21:00)
[2018-06-10 15:48] VITALS: BP 111/59
[2018-06-10 18:44] VITALS: BP 151/70
[2018-06-10] MEDS: ENOXAPARIN 40 MG/0.4 ML SQ SCH (21:00)
[2018-06-11 02:06] VITALS: BP 135/82
[2018-06-11] MEDS: IPRATROPIUM 0.5 MG/2.5 ML INHA NPPB SCH ×4 (03:08→20:52)
[2018-06-11] MEDS: LEVOTHYROXINE 75 MCG TABLET PO SCH (05:24)
[2018-06-11 07:53] VITALS: BP 130/76
[2018-06-11] MEDS: GUAIFENESIN ER 600 MG TABLET PO SCH ×2 (07:54→19:59)
[2018-06-11] MEDS: OLANZAPINE 2.5 MG TABLET PO SCH ×2 (07:54→20:00)
[2018-06-11] MEDS: SODIUM CHLORIDE FLUSH 10ML SYR IVF SCH ×2 (07:54→20:05)
[2018-06-11] MEDS: BUDESONIDE 0.5 MG/2 ML INHA HHN SCH ×2 (09:00→20:52)
[2018-06-11 12:43] VITALS: BP 134/79
[2018-06-11] MEDS: HALOPERIDOL 5 MG/ML IM PRN (14:48)
[2018-06-11 19:02] VITALS: BP 123/68
[2018-06-11] MEDS: ENOXAPARIN 40 MG/0.4 ML SQ SCH (19:59)
[2018-06-12 02:04] VITALS: BP 121/70
[2018-06-12] MEDS: IPRATROPIUM 0.5 MG/2.5 ML INHA NPPB SCH ×4 (03:00→20:31)
[2018-06-12] MEDS: LEVOTHYROXINE 75 MCG TABLET PO SCH (06:21)
[2018-06-12 06:55] VITALS: BP 115/67
[2018-06-12] MEDS: BUDESONIDE 0.5 MG/2 ML INHA HHN SCH ×2 (08:15→20:31)
[2018-06-12] MEDS: GUAIFENESIN ER 600 MG TABLET PO SCH ×2 (08:32→20:17)
[2018-06-12] MEDS: OLANZAPINE 2.5 MG TABLET PO SCH ×2 (08:32→20:18)
[2018-06-12] MEDS: SODIUM CHLORIDE FLUSH 10ML SYR IVF SCH ×2 (09:00→20:24)
[2018-06-12 16:30] VITALS: BP 116/67
[2018-06-12] MEDS: HALOPERIDOL 5 MG/ML IM PRN (17:08)
[2018-06-12 19:20] VITALS: BP 125/61
[2018-06-12] MEDS: ENOXAPARIN 40 MG/0.4 ML SQ SCH (20:18)
[2018-06-13 01:15] VITALS: BP 138/73
[2018-06-13] MEDS: IPRATROPIUM 0.5 MG/2.5 ML INHA NPPB SCH ×2 (03:50→06:35)
[2018-06-13 05:33] LABS: CREATININE 0.46 mg/dL (0.55-1.02)
[2018-06-13] MEDS: LEVOTHYROXINE 75 MCG TABLET PO SCH (05:35)
[2018-06-13] MEDS: BUDESONIDE 0.5 MG/2 ML INHA HHN SCH (06:35)
[2018-06-13 07:15] VITALS: BP_SYST 105; BP_SYST 149; BP_DIAS 63
[2018-06-13] MEDS: GUAIFENESIN ER 600 MG TABLET PO SCH (10:52)
[2018-06-13] MEDS: SODIUM CHLORIDE FLUSH 10ML SYR IVF SCH (10:53)
[2018-06-13] MEDS: OLANZAPINE 2.5 MG TABLET PO SCH (10:55)
[2018-06-13] MEDS ORDERED: PRED20TA PO (13:54)
[2018-06-13] MEDS ORDERED: OLAN2.5T10 PO (13:54)
[2018-06-13] MEDS ORDERED: GUAI600T31 PO (13:54)
[2018-06-13] MEDS ORDERED: LEVO75TA PO (13:54)
[2018-06-13] MEDS ORDERED: IPRATROPIUM 0.5 MG/2.5 ML INHA NPPB SCH (21:00)
== END 2018-06-13 15:55 | DRG 871 ==
LOC: ED 14:07 → EDIP 15:44 → 3NE 17:23
PROVIDERS: ADMIT Internal Medicine; ATTEND Family Medicine
DX: A41.9 Sepsis, unspecified organism (principal); J18.1 Lobar pneumonia, unspecified organism; J96.21 Acute and chronic respiratory failure with hypoxia; G93.41 Metabolic encephalopathy; F20.0 Paranoid schizophrenia; J44.0 Chronic obstructive pulmonary disease with (acute) lower respiratory infection; J44.1 Chronic obstructive pulmonary disease with (acute) exacerbation; F02.80 Dementia in other diseases classified elsewhere, unspecified severity, without behavioral disturbance, psychotic disturbance, mood disturbance, and anxiety; F60.0 Paranoid personality disorder; E03.9 Hypothyroidism, unspecified; Z66 Do not resuscitate; Z99.81 Dependence on supplemental oxygen; Z87.891 Personal history of nicotine dependence; Z90.49 Acquired absence of other specified parts of digestive tract
CPT/HCPCS: 36415; 70450; 71045; 80048; 80053; 82565; 82607; 82746; 83605; 84145; 84439; 84443; 84484; 85025; 87040; 87324; 87400; 93005; 94640; 96365; 96368; 96375; 99291; G0378; J0456; J0696; J1650; J7060; J7613; J7620; J7626; J7644; 92522-GN; J1630; J2930; J7030; J7050; J7512

== ENCOUNTER 2018-06-13 13:11 | Inpatient (IN) | payer MEDICARE ==
[~2018-06-13] VITALS: Ht 154.9 cm; Wt 49.2 kg
[~2018-06-13 13:11] MED LIST changes: +ALBU5SOL6 INH; +DIVA250T14 PO; +DOXY100T PO; +IPRA0.2S35 INH; +LEVO50TA5 PO; +PRED20TA PO; +RISP0.253 PO
[2018-06-13] MEDS ORDERED: BISACODYL 10 MG SUPP PR PRN (13:30)
[2018-06-13] MEDS ORDERED: ONDANSETRON ODT 4 MG PO PRN (13:30)
[2018-06-13] MEDS ORDERED: ACETAMINOPHEN 325 MG TABLET PO PRN (13:30)
[2018-06-13] MEDS ORDERED: DOCUSATE 100 MG CAPSULE PO PRN (13:30)
[2018-06-13] MEDS ORDERED: POLYETHYLENE GLYCOL 17 GM PACKET PO PRN (13:30)
[2018-06-13] MEDS ORDERED: OLAN2.5T10 PO (13:54)
[2018-06-13] MEDS ORDERED: PRED20TA PO (13:54)
[2018-06-13] MEDS ORDERED: LEVO75TA PO (13:54)
[2018-06-13] MEDS ORDERED: GUAI600T31 PO (13:54)
[2018-06-13] MEDS ORDERED: PLEASE ENTER HEIGHT AND WEIGHT MC SCH (14:00)
[2018-06-13 16:07] VITALS: BP 122/66
[2018-06-13 16:14] VITALS: BP 122/66
[2018-06-13 19:12] VITALS: BP 130/77
[2018-06-13] MEDS: DIVALPROEX 125 MG CAP.SPRINK PO SCH (20:42)
[2018-06-13] MEDS ORDERED: OLANZAPINE 2.5 MG TABLET PO SCH (21:00)
[2018-06-13] MEDS: GUAIFENESIN ER 600 MG TABLET PO SCH (21:00)
[2018-06-13] MEDS: BUDESONIDE 0.5 MG/2 ML INHA NPPB SCH (21:00)
[2018-06-13] MEDS: IPRATROPIUM 0.5 MG/2.5 ML INHA NPPB SCH (21:00)
[2018-06-14 05:29] LABS: BASOPHILS # (AUTO) 0.05 x10^3/uL (0-0.1); BASOPHILS % (AUTO) 0 % (0-1); EOSINOPHILS % (AUTO) 1 % (1-7); LYMPHOCYTES # (AUTO) 2.91 x10^3/uL (1-3.4); LYMPHOCYTES % (AUTO) 27 % (22-44); MD NO; MEAN CORPUSCULAR HEMOGLOBIN 32.3 pg (27.0-34.8); MEAN CORPUSCULAR HGB CONC 33.8 g/dL (32.4-35.8); MEAN CORPUSCULAR VOLUME 95.8 fL (80-100); MEAN PLATELET VOLUME 7.8 fL (7.4-10.4); MONOCYTES # (AUTO) 0.76 x10^3/uL (0.2-0.8); MONOCYTES % (AUTO) 7 % (2-9); NEUTROPHILS # (AUTO) 6.95 x10^3/uL (1.8-6.8); NEUTROPHILS % (AUTO) 65 % (42-75); PLATELET COUNT 331 x10^3/uL (130-400); RED CELL DISTRIBUTION WIDTH 17.4 % (9.6-15.2)
[2018-06-14 05:37] LABS: HCT (SEDRATE) 42.2 % (34.6-47.8)
[2018-06-14] MEDS ORDERED: LEVOTHYROXINE 50 MCG TABLET ONE (05:46)
[2018-06-14] MEDS ORDERED: LEVOTHYROXINE 25 MCG TABLET ONE (05:47)
[2018-06-14 05:48] LABS: CHLORIDE 107 mmol/L (98-107)
[2018-06-14] MEDS: LEVOTHYROXINE 75 MCG TABLET PO SCH (05:52)
[2018-06-14 06:21] LABS: ALANINE AMINOTRANSFERASE 53 U/L (12-78); ALBUMIN 2.7 g/dL (3.4-5.0); ANION GAP 7 mmol/L (5-15); BILIRUBIN,TOTAL 0.4 mg/dL (0.2-1.0); CHOLESTEROL, TOTAL 265 mg/dL (140-239); CREATININE 0.54 mg/dL (0.55-1.02); TOTAL PROTEIN 6.4 g/dL (6.4-8.2); TRIGLYCERIDES 153 mg/dL (50-200); VLDL CHOLESTEROL 31 mg/dL (0-25)
[2018-06-14 06:22] LABS: ALKALINE PHOSPHATASE 58 U/L (45-117); CHOL/HDL RATIO 4.3; HDL CHOL % 23 % (28-40); HDL CHOLESTEROL (DIRECT) 61 mg/dL (40-60); LDL CHOLESTEROL,CALCULATED 173 mg/dL (54-169); LDL/HDL RATIO 2.8 (0.5-3.0)
[2018-06-14 07:10] VITALS: BP 128/67
[2018-06-14] MEDS: IPRATROPIUM 0.5 MG/2.5 ML INHA NPPB SCH ×2 (07:40→21:00)
[2018-06-14] MEDS: BUDESONIDE 0.5 MG/2 ML INHA NPPB SCH ×2 (07:40→21:00)
[2018-06-14] MEDS: OLANZAPINE 5 MG TABLET PO SCH (09:44)
[2018-06-14] MEDS: DIVALPROEX 125 MG CAP.SPRINK PO SCH ×2 (09:44→20:13)
[2018-06-14] MEDS: GUAIFENESIN ER 600 MG TABLET PO SCH ×2 (09:44→20:13)
[2018-06-14] MEDS: SENNA/DOCUSATE TABLET PO SCH (09:44)
[2018-06-14 10:12] LABS: MICROSCOPIC INDICATED
[2018-06-14 10:23] LABS: CULTURE INDICATED? YES
[2018-06-14 15:00] VITALS: BP 124/68
[2018-06-14 19:25] VITALS: BP_SYST 112; BP_SYST 90; BP_DIAS 59; BP_DIAS 66
[2018-06-15] MEDS: LEVOTHYROXINE 75 MCG TABLET PO SCH (06:00)
[2018-06-15 07:41] VITALS: BP 108/66
[2018-06-15] MEDS: OLANZAPINE 5 MG TABLET PO SCH (08:43)
[2018-06-15] MEDS: DIVALPROEX 125 MG CAP.SPRINK PO SCH ×2 (08:43→20:21)
[2018-06-15] MEDS: GUAIFENESIN ER 600 MG TABLET PO SCH ×2 (08:44→20:21)
[2018-06-15] MEDS: SENNA/DOCUSATE TABLET PO SCH (08:51)
[2018-06-15] MEDS: IPRATROPIUM 0.5 MG/2.5 ML INHA NPPB SCH ×2 (09:00→21:59)
[2018-06-15] MEDS: BUDESONIDE 0.5 MG/2 ML INHA NPPB SCH ×2 (09:00→21:59)
[2018-06-15 19:37] VITALS: BP 114/67
[2018-06-16] MEDS: LEVOTHYROXINE 75 MCG TABLET PO SCH (06:20)
[2018-06-16 07:50] VITALS: BP 120/69
[2018-06-16] MEDS: SENNA/DOCUSATE TABLET PO SCH (08:42)
[2018-06-16] MEDS: GUAIFENESIN ER 600 MG TABLET PO SCH ×2 (08:42→20:47)
[2018-06-16] MEDS: DIVALPROEX 125 MG CAP.SPRINK PO SCH ×2 (08:42→20:48)
[2018-06-16] MEDS: OLANZAPINE 5 MG TABLET PO SCH (08:43)
[2018-06-16] MEDS: IPRATROPIUM 0.5 MG/2.5 ML INHA NPPB SCH ×2 (09:00→21:00)
[2018-06-16] MEDS: BUDESONIDE 0.5 MG/2 ML INHA NPPB SCH ×2 (09:00→21:00)
[2018-06-16 19:35] VITALS: BP 119/72
[2018-06-17 07:47] VITALS: BP 114/66
[2018-06-17] MEDS: LEVOTHYROXINE 75 MCG TABLET PO SCH (08:01)
[2018-06-17] MEDS: SENNA/DOCUSATE TABLET PO SCH (08:44)
[2018-06-17] MEDS: GUAIFENESIN ER 600 MG TABLET PO SCH ×2 (08:44→20:23)
[2018-06-17] MEDS: OLANZAPINE 5 MG TABLET PO SCH (08:44)
[2018-06-17] MEDS: DIVALPROEX 125 MG CAP.SPRINK PO SCH ×2 (08:45→20:23)
[2018-06-17] MEDS: IPRATROPIUM 0.5 MG/2.5 ML INHA NPPB SCH ×2 (09:00→21:00)
[2018-06-17] MEDS: BUDESONIDE 0.5 MG/2 ML INHA NPPB SCH ×2 (09:00→21:00)
[2018-06-17 19:59] VITALS: BP 109/65
[2018-06-18] MEDS: LEVOTHYROXINE 75 MCG TABLET PO SCH (06:20)
[2018-06-18 07:45] VITALS: BP 113/71
[2018-06-18] MEDS: OLANZAPINE 5 MG TABLET PO SCH (08:53)
[2018-06-18] MEDS: SENNA/DOCUSATE TABLET PO SCH (08:53)
[2018-06-18] MEDS: GUAIFENESIN ER 600 MG TABLET PO SCH (08:53)
[2018-06-18] MEDS: DIVALPROEX 125 MG CAP.SPRINK PO SCH (08:53)
[2018-06-18] MEDS: BUDESONIDE 0.5 MG/2 ML INHA NPPB SCH (09:00)
[2018-06-18] MEDS: IPRATROPIUM 0.5 MG/2.5 ML INHA NPPB SCH (09:00)
== END 2018-06-18 13:20 | disposition home or self-care (01) | DRG 885 ==
LOC: 3E 13:19
PROVIDERS: ADMIT Psychiatry & Neurology Psychosomatic Medicine; ATTEND Psychiatry & Neurology Psychosomatic Medicine
DX: F20.0 Paranoid schizophrenia (principal); J96.21 Acute and chronic respiratory failure with hypoxia; G93.41 Metabolic encephalopathy; E03.9 Hypothyroidism, unspecified; F03.90 Unspecified dementia, unspecified severity, without behavioral disturbance, psychotic disturbance, mood disturbance, and anxiety; N81.4 Uterovaginal prolapse, unspecified; F09 Unspecified mental disorder due to known physiological condition; F60.0 Paranoid personality disorder; Z87.891 Personal history of nicotine dependence; Z87.01 Personal history of pneumonia (recurrent)
CPT/HCPCS: 36415; 80053; 80061; 81001; 82140; 85025; 85651; 86592; 87086; 93005; 94640; J7626; J7644; 92523-GN; J7512

== ENCOUNTER 2018-07-05 17:56 | Emergency (ER) | payer MEDICARE ==
[~2018-07-05] VITALS: Ht 149.9 cm; Wt 55.0 kg
[~2018-07-05 17:56] MED LIST changes: +GUAI600T31 PO; +LEVO75TA PO; +OLAN2.5T10 PO
[2018-07-05] MEDS ORDERED: IPRATROPIUM 0.5 MG/2.5 ML INHA ONE (18:26)
[2018-07-05] MEDS ORDERED: IPRATROPIUM 0.5 MG/2.5 ML INHA NPPB PRN (18:30)
--- NOTE | 2018-07-05 18:32 | NUR ---
rt at bedside
[2018-07-05 18:33] LABS: BASOPHILS # (AUTO) 0.06 x10^3/uL (0-0.1); BASOPHILS % (AUTO) 1 % (0-1); EOSINOPHILS # (AUTO) 0.04 x10^3/uL (0-0.4); EOSINOPHILS % (AUTO) 0 % (1-7); LYMPHOCYTES # (AUTO) 2.95 x10^3/uL (1-3.4); LYMPHOCYTES % (AUTO) 24 % (22-44); MD NO; MEAN CORPUSCULAR HEMOGLOBIN 31.7 pg (27.0-34.8); MEAN CORPUSCULAR HGB CONC 32.9 g/dL (32.4-35.8); MEAN CORPUSCULAR VOLUME 96.4 fL (80-100); MEAN PLATELET VOLUME 7.7 fL (7.4-10.4); MONOCYTES # (AUTO) 1.03 x10^3/uL (0.2-0.8); MONOCYTES % (AUTO) 8 % (2-9); NEUTROPHILS % (AUTO) 67 % (42-75); PLATELET COUNT 344 x10^3/uL (130-400); RED BLOOD COUNT 4.66 x10^6/uL (3.82-5.3); RED CELL DISTRIBUTION WIDTH 17.9 % (9.6-15.2)
[2018-07-05 18:42] LABS: INTERNATIONAL NORMALIZED RATIO 0.89 (0.93-1.1); PROTHROMBIN TIME 9.5 Seconds (9.6-11.5)
[2018-07-05 18:44] LABS: ALANINE AMINOTRANSFERASE 19 U/L (12-78); ALBUMIN 2.9 g/dL (3.4-5.0); ANION GAP 7 mmol/L (5-15); CALCIUM 8.6 mg/dL (8.5-10.1); CHLORIDE 103 mmol/L (98-107)
[2018-07-05 18:49] LABS: ALKALINE PHOSPHATASE 55 U/L (45-117); BILIRUBIN,TOTAL 0.3 mg/dL (0.2-1.0); CREATININE 0.65 mg/dL (0.55-1.02); TOTAL PROTEIN 6.5 g/dL (6.4-8.2); TROPONIN I 0.019 ng/mL (0.000-0.045)
--- NOTE | 2018-07-05 18:59 | NUR ---
REPORT OF PT FROM MARIELENA PATEL. ASSUMING CARE OF PT.
[2018-07-05 20:14] VITALS: BP 127/53
== END 2018-07-05 20:40 | disposition home or self-care (01) ==
LOC: ED 18:22
DX: J44.9 Chronic obstructive pulmonary disease, unspecified (principal); Z87.891 Personal history of nicotine dependence
CPT/HCPCS: 36415; 71045; 80053; 83880; 84484; 85025; 85610; 85730; 94640; 99284; J7644